=== PATIENT | female | born 1990 | race Caucasian/White ===

== ENCOUNTER 2020-06-14 22:42 | Emergency (ER) | payer OTHER | END 2020-06-14 23:38 | disposition left against medical advice (07) | LOC: CSHERS 22:42 | DX: Z53.21 Procedure and treatment not carried out due to patient leaving prior to being seen by health care provider (principal) ==

== ENCOUNTER 2020-07-06 07:20 | Emergency (ER) | payer OTHER ==
[2020-07-06] MEDS ORDERED: Ketorolac Tromethamine 30 MG/ML VIAL ONE (07:41)
== END 2020-07-06 08:00 | disposition home or self-care (01) ==
LOC: CSHERS 07:20
DX: H66.002 Acute suppurative otitis media without spontaneous rupture of ear drum, left ear (principal); F17.210 Nicotine dependence, cigarettes, uncomplicated
CPT/HCPCS: 96372; 99282; J1885

== ENCOUNTER 2020-08-04 18:38 | Emergency (ER) | payer OTHER | END 2020-08-04 19:40 | disposition home or self-care (01) | LOC: CSHERS 18:38 | DX: L55.0 Sunburn of first degree (principal); F17.210 Nicotine dependence, cigarettes, uncomplicated | CPT/HCPCS: 99282 ==